=== PATIENT | female | born 1970 | race Caucasian/White ===

== ENCOUNTER → 2018-06-11 | Outpatient (CLI) | payer OTHER ==
[~2018-06-11] MED LIST: CLB100 PO; PRLSR20 PO
--- NOTE | 2018-06-11 11:36 | DIAGNOSTIC IMAGING REPORT ---
CHEST 2 VIEWS ROUTINE HISTORY: Preop. COMPARISON: None. FINDINGS: There are low lung volumes with mild elevation the right hemidiaphragm. Cardiac silhouette is top normal in size. No focal lung consolidations to suggest pneumonia. No evidence for pulmonary edema. IMPRESSION: Low lung volumes with mild elevation of the right hemidiaphragm. Otherwise, no acute process within the chest. Electronically signed by: Ben Villareal M.D. 06/11/2018 11:34 AM Dictated Date/Time: 06/11/2018 11:33 AM
[2018-06-11 11:46] LABS: BASO % 0.4 %; BASO ABS # 0.05 K/uL (0-0.2); EOS % 3.1 %; EOS ABS # 0.36 K/uL (0-0.5); HEMATOCRIT 40.5 % (37-47); HEMOGLOBIN 13.3 g/dL (12.0-16.0); IG# 0.03 K/uL (0.00-0.02); LYMPH % 22.5 %; LYMPH ABS # 2.62 K/uL (1.2-3.4); MEAN CORPUSCULAR HEMOGLOBIN 29.9 pg (25-34); MEAN CORPUSCULAR HGB CONC 32.8 g/dl (32-36); MEAN PLATELET VOLUME 10.4 fL (7.4-10.4); MONO % 5.7 %; MONO ABS # 0.67 K/uL (0.11-0.59); NEUT ABS # 7.93 K/uL (1.4-6.5); PLATELET COUNT 260 K/uL (130-400); RED CELL DISTRIBUTION WIDTH CV 13.1 % (11.5-14.5); RED CELL DISTRIBUTION WIDTH SD 43.6 fL (36.4-46.3); WHITE BLOOD COUNT 11.66 K/uL (4.8-10.8)
[2018-06-11 11:51] LABS: ALBUMIN 3.5 gm/dl (3.4-5.0); BLOOD UREA NITROGEN 17 mg/dl (7-18); CARBON DIOXIDE 28 mmol/L (21-32); CREATININE 0.71 mg/dl (0.60-1.20); GLUCOSE 91 mg/dl (70-99); POTASSIUM 4.6 mmol/L (3.5-5.1); SODIUM 141 mmol/L (136-145)
[2018-06-11 12:06] LABS: INR 0.9 (0.9-1.1); PTT PATIENT 25.6 SECONDS (21.0-31.0)
[2018-06-11 12:35] LABS: HEMOGLOBIN A1C 5.9 % (4.5-5.6)
== END | disposition home or self-care (01) ==
LOC: C.CPL 10:24
PROVIDERS: ATTEND Orthopaedic Surgery
DX: Z01.818 Encounter for other preprocedural examination (principal)

== ENCOUNTER 2018-06-24 06:13 | Inpatient (IN) | payer OTHER ==
[2018-06-01 08:05] VITALS: BMI 45.0
--- NOTE | 2018-06-10 16:27 | PAT Medication Instructions ---
Service Date Jun 10, 2018. Current Home Medication List Celecoxib (Celebrex), Unknown Dose PO QAM Omeprazole (Prilosec), 20 MG PO QAM Medication Instructions For Your Scheduled Surgery - Check with surgeon for instructions: Celecoxib (Celebrex), Unknown Dose PO QAM - Take the following medications the morning of surgery with a sip of water: Omeprazole (Prilosec), 20 MG PO QAM If you have any questions please call us at [phone] or [phone] or [phone]
[2018-06-11 11:00] VITALS: BMI 47.0
--- NOTE | 2018-06-11 14:41 | HISTORY & PHYSICAL EXAMINATION ---
DATE OF ADMISSION: 06/24/2018 CHIEF COMPLAINT: Left knee pain. HISTORY OF PRESENT ILLNESS: Roberto is a 48-year-old female with a 4-year history of left knee pain. The patient rates her pain at 12/10. She has pain with her daily activities. She has limited standing and walking tolerance. Pain is worse with weightbearing. The patient has had injections and NSAIDS without relief. She is now scheduled for left knee replacement. PAST MEDICAL HISTORY: Benign. She denies heart disease, diabetes or DVT. PAST SURGICAL HISTORY: Right TKA, and cholecystectomy. SOCIAL HISTORY: The patient drinks alcohol socially. She denies tobacco use. She does vape occasionally. She quit smoking in 2016. She lives in a 2-story home. She is and works as an RN. FAMILY HISTORY: Negative for DVT. MEDICATIONS: Celebrex 200 mg, Prilosec. ALLERGIES: None. REVIEW OF SYSTEMS: See HPI. Ten other systems reviewed, all negative. PHYSICAL EXAMINATION: VITAL SIGNS: Height 5 feet 7 inches, weight 300 pounds, BMI 47. GENERAL: This is a well-developed, well-nourished female who is alert and oriented x3. Mood and affect are appropriate. HEENT: Normocephalic, atraumatic. Mucous membranes are moist and intact. NECK: Supple without lymphadenopathy. HEART: Regular rate and rhythm without murmurs, rubs or gallops. LUNGS: Clear to auscultation without wheezes or rhonchi. ABDOMEN: Soft and nontender. Bowel sounds are equal and active. EXTREMITIES: No ecchymosis, redness or warmth. She has neutral alignment. Range of motion is from 0-115 degrees with +1 laxity. She has positive effusion and mild distal edema. X-RAY EXAMINATION: AP and lateral views show joint space narrowing and osteophyte formation. IMPRESSION: 1. Degenerative joint disease, left knee. 2. Morbid obesity. PLAN: The patient will be admitted for a left total knee arthroplasty. We will plan on aspirin for DVT prophylaxis. The patient would like to do outpatient physical therapy.
[~2018-06-24] VITALS: Ht 170.2 cm; Wt 137.3 kg
[2018-06-24] VITALS (8 sets, daily range): BP systolic 99–146; BP diastolic 67–82; PULSE 77–96; TEMP 36.4–36.9; O2SAT 94–97; Ht 170.2 cm; Wt 137.3 kg
[2018-06-24] MEDS: TRANEXAMIC ACID INJ 1,000 MG x 2 Bags IV SCH ×4 (06:00→06:30)
[~2018-06-24 06:13] MED LIST changes: +ACETAMINOPHEN 500 MG TAB PO SCH; +CEFAZOLIN 3000MG IV PUSH 22.5 ML IV SCH; +CeleBREX 200 MG CAP PO SCH; +DEXAMETHASONE 4 MG TAB PO SCH; +FAMOTIDINE 20 MG TAB PO SCH; +GABAPENTIN 300 MG CAP PO SCH; +LACTATED RINGER'S 1000ML 1,000 ML IV SCH; +LACTATED RINGER'S 1000ML 500 ML IV SCH; +METOCLOPRAMIDE HCL 10 MG TAB PO SCH; +ROPIVACAINE 5MG/ML 30 ML 150 MG, BUPIVACAINE 0.5% MPF INJ 30 ML, EpINEphrine HCL INJ 0.... INFIL SCH
--- NOTE | 2018-06-24 07:00 | History & Physical Bridge Note ---
H&P Re-Evaluation Bridge Note: I have examined the patient, reviewed the History & Physical and in the interval since the performance of the History & Physical I have noted the following changes of clinical significance: No changes noted
[2018-06-24] MEDS ORDERED: BUPIVACAINE 0.25% 30 ML VIAL ONE (07:11)
[2018-06-24] MEDS ORDERED: BUPIVACAINE 0.5 % 5 MG/1 ML PF 10ML VIAL ONE (07:11)
[2018-06-24] MEDS ORDERED: MIDAZOLAM HCL 1 MG/ML 2ML VIAL ONE ×2 (08:11)
[2018-06-24] MEDS ORDERED: FENTANYL CITRATE INJ 50 MCG/1 ML 2 ML VIAL ONE (08:12)
[2018-06-24] MEDS ORDERED: ORTHO JOINT ANESTHETIC ONE (08:44)
[2018-06-24] MEDS ORDERED: POVIDONE-IODINE OP SOLN 30 ML BTL ONE (08:45)
[2018-06-24] MEDS ORDERED: BACITRACIN 50000 UNIT VIAL ONE (08:45)
[2018-06-24] MEDS ORDERED: ATROPINE SULFATE 0.1 MG/ML 5ML SYR IV PRN (10:45)
[2018-06-24] MEDS ORDERED: HYDROmorphone INJ 2 MG/ML SYR/VIAL IV PRN (10:45)
[2018-06-24] MEDS ORDERED: KETOROLAC TROMETHAMINE 30 MG/ML VIAL IV. PRN ×2 (10:45→12:00)
[2018-06-24] MEDS ORDERED: PHENYLEPHRINE 100MCG/ML 5ML SYR IV PRN (10:45)
[2018-06-24] MEDS ORDERED: ONDANSETRON INJ 2 MG/ML 2 ML VIAL IV PRN ×2 (10:45→12:00)
[2018-06-24] MEDS ORDERED: EpHEDrine SULFATE INJ 50 MG/ML AMP IV PRN (10:45)
--- NOTE | 2018-06-24 11:05 | [facility] Post Operative Brief Note ---
Immediate Operative Summary Operative Date Jun 24, 2018. Pre-Operative Diagnosis Left Knee Degenerative Joint Disease Post-Operative Diagnosis Same as preop Procedure(s) Performed Left Total Knee Arthroplasty utilizing Mariajose persona size 9 left femur size E tibia 10 mm medial congruent bearing with a 31 x 8 mm asymmetric patella Surgeon Dr. Hicks Dump Motorman Surgeon(s) Rocco Galloway PA-C Estimated Blood Loss 10 ml Findings Consistent with Post-Op Diagnosis Specimens A. Left Knee Bone and Tissue Anesthesia Type MAC Spinal Regional Complication(s) none Disposition Disposition: Recovery Room / PACU Overlapping Procedure I was present for: the critical portions of procedure. I was immediately available: during the entire case Back up surgeon: was not required during procedure
[2018-06-24] MEDS ORDERED: PROPOFOL IV EMULSION 10 MG/ML 20 ML VIAL ONE (11:08)
[2018-06-24] MEDS ORDERED: LIDOCAINE HCL 2% 2 ML VIAL (20MG/ML) ONE (11:08)
--- NOTE | 2018-06-24 11:09 | [facility] Operative Report ---
Operative Report Operative Date Jun 24, 2018. Pre-Operative Diagnosis Left Knee Degenerative Joint Disease Post-Operative Diagnosis Same as preop Procedure(s) Performed Left Total Knee Arthroplasty utilizing Mariajose persona size 9 left femur size E tibia 10 mm medial congruent bearing with a 31 x 8 mm asymmetric patella Surgeon Dr. Hicks Electric Motor Assembler And Tester Surgeon(s) Rocco Galloway PA-C Estimated Blood Loss 10 ml Findings Patient presents with severe end-stage chronic more mild degenerative joint disease left knee she has previously undergone years prior elsewhere a right total knee arthroplasty presents today for left total neuroplasty after failing attempts at conservative management findings time surgery included a subchondral cystic changes marginal osteophytes sclerosis eburnated bone tricompartmentally pseudo-ligamentous laxity of the medial compartment Specimens A. Left Knee Bone and Tissue Anesthesia Type MAC Spinal Regional Complication(s) none Disposition Recovery Room / PACU Indications Patient presents is very pleasant 48-year-old white female after failing attempts at conservative management for her left knee she has severe intractable neurogenic joint disease with the above findings noted time surgery she also noted clinically of pseudo-ligamentous laxity medial compartment she had painful crepitation patellofemoral joint medial compartment with medial and lateral joint line pain and tenderness and a moderate to large effusion Description of Procedure After proper prepping draping the left lower extremity and anterior extensor mechanism incision was made medial parapatellar incision made the patella was subluxed lateralward the portion of the anterior fat pad was excised the medial lateral osteophytes were removed the anterior posterior cruciate ligament complex was removed as well as the medial lateral menisci subsequently the custom perform a guide is placed on the distal femoral to distal femur cut was made the 4-in-1 block was placed chamfer cuts in appropriate anterior and posterior cuts were made in the appropriate rotational alignment utilizing the custom made block of these also were verified via drop rods subsequently the proximal tibia was exposed proximal tibial osteotomy was cut persona custom- made jig alignment was noted to be excellent socially wound was irrigated with copious amounts of sterile saline solution trials were placed a size 9 narrow femur with a size E to be gave excellent fit and fill with the 10 mm congruent bearing gave excellent stability in both full extension flexion and mid flexion excellent stability was obtained and maintained throughout all ranges asymmetric patella 31 mm gave excellent patellar tracking with no lateral release necessary Sterilization Via Severe Pulsatile Lavage Meticulous Hemostasis Was Obtained and Maintained at All Times the Final Components Were Brought into the Field Cement Was Mixed and Subsequently the Implants Were Cemented in the Following Order Tibia Femoropatellar All Excess Bone Cement Was Removed the Tracking Was Noted to Be Excellent Stability Was Noted to Be Excellent in Both Flexion and Extension and Mid Flexion the Medial Parapatellar Incision Was Closed with #1 Vicryl Subcu Was Closed with 2-0 Vicryl Skin Was Closed with a Running V Lock a Sterile Compression Dressing Was Placed Patient Was Taken to the Recovery Room in Stable Condition Please Note Rocco HALEY Was Necessary Prepping Draping Retraction Wound Closure of the Fascia Subcu and Skin Was Necessary for the Case I attest to the content of the Intraoperative Record and any orders documented therein. Any exceptions are noted below.
[2018-06-24] MEDS ORDERED: BISACODYL 10 MG SUPP PR PRN (12:00)
[2018-06-24] MEDS ORDERED: ALUMINUM/MAGNESIUM/SIMETH (MAALOX MAX) 30 ML UDC PO PRN (12:00)
[2018-06-24] MEDS ORDERED: MoRPHine SULFATE 2 MG/ML CARP IV PRN (12:00)
[2018-06-24] MEDS ORDERED: MAGNESIUM HYDROXIDE SUSP 30 ML UDC PO PRN (12:00)
[2018-06-24] MEDS ORDERED: ZOLPIDEM TARTRATE 5 MG TAB PO PRN (12:00)
[2018-06-24] MEDS ORDERED: SOD PHOSPHATE/SOD BIPHOSPHATE ENEMA 132 ML BTL PR PRN (12:00)
--- NOTE | 2018-06-24 12:09 | DIAGNOSTIC IMAGING REPORT ---
LEFT KNEE 2 VIEWS History: Left total knee arthroplasty. Degenerative arthritis. Postop. FINDINGS: The patient is status post a left total knee arthroplasty. The hardware is intact. No fracture or dislocation. Surgical drains are in place. IMPRESSION: Left total knee arthroplasty. No evidence for hardware complication. Electronically signed by: Ben Villareal M.D. 06/24/2018 12:07 PM Dictated Date/Time: 06/24/2018 12:06 PM
--- NOTE | 2018-06-24 12:25 | Anesthesiology Progress Note ---
Anesthesia Post Op Note Date & Time Jun 24, 2018 at 12:25 Vital Signs Pain Intensity: 0 Vital Signs Past 12 Hours Date Time Temp Pulse Resp B/P (MAP) Pulse Ox O2 Delivery O2 Flow Rate FiO2 06/24/18 12:15 81 16 105/73 96 Nasal Cannula 2 06/24/18 12:05 90 17 114/76 97 Nasal Cannula 2 06/24/18 11:55 96 19 98/58 97 Oxymask 10 06/24/18 11:46 36.6 103 20 98/57 96 Oxymask 10 06/24/18 07:09 36.9 81 20 131/82 96 Room Air Notes Mental Status: alert / awake / arousable, participated in evaluation Pt Amnestic to Procedure: Yes Nausea / Vomiting: adequately controlled Pain: adequately controlled Airway Patency, RR, SpO2: stable & adequate BP & HR: stable & adequate Hydration State: stable & adequate Anesthetic Complications: no major complications apparent
[2018-06-24] MEDS: ACETAMINOPHEN 500 MG TAB PO SCH ×2 (13:54→21:49)
[2018-06-24] MEDS: OXYCODONE HCL IR 5 MG TAB (IMMEDIATE RELEASE) PO PRN (18:43)
[2018-06-24] MEDS: D5W AND 1/2NSS + 20MEQ KCL 1,000 ML IV SCH (19:35)
[2018-06-24] MEDS ORDERED: SENNA 8.6 MG TAB PO SCH (21:00)
[2018-06-24] MEDS: ASPIRIN 81 MG ECTAB PO SCH (21:08)
[2018-06-24] MEDS: DOCUSATE SODIUM 100 MG CAP PO SCH (21:08)
[2018-06-24] MEDS: CEFAZOLIN IV 2,000 MG in SYRINGE 0 ML IV SCH (21:48)
[2018-06-25] MEDS: OXYCODONE HCL IR 5 MG TAB (IMMEDIATE RELEASE) PO PRN ×3 (01:00→14:26)
[2018-06-25 03:31] VITALS: BP 123/74; PULSE 90; TEMP 36.7; O2SAT 96
[2018-06-25] MEDS: D5W AND 1/2NSS + 20MEQ KCL 1,000 ML IV SCH ×2 (05:19→09:19)
[2018-06-25] MEDS: CEFAZOLIN IV 2,000 MG in SYRINGE 0 ML IV SCH (05:23)
[2018-06-25] MEDS: ACETAMINOPHEN 500 MG TAB PO SCH ×2 (05:23→13:37)
[2018-06-25 06:27] LABS: HEMATOCRIT 35.1 % (37-47); HEMOGLOBIN 11.6 g/dL (12.0-16.0); MEAN CELL VOLUME 90.2 fL (80-100); MEAN CORPUSCULAR HEMOGLOBIN 29.8 pg (25-34); MEAN PLATELET VOLUME 10.5 fL (7.4-10.4); PLATELET COUNT 271 K/uL (130-400); RED CELL DISTRIBUTION WIDTH CV 13.4 % (11.5-14.5); RED CELL DISTRIBUTION WIDTH SD 43.7 fL (36.4-46.3)
[2018-06-25 06:57] LABS: CREATININE 0.88 mg/dl (0.60-1.20)
[2018-06-25 06:58] LABS: CALCIUM 8.4 mg/dl (8.5-10.1); POTASSIUM 4.3 mmol/L (3.5-5.1)
[2018-06-25 07:30] VITALS: BP 116/70; PULSE 85; TEMP 36.6; O2SAT 94
--- NOTE | 2018-06-25 08:22 | Orthopedic Progress Note ---
Orthopedic Progress Note Date of Service Jun 25, 2018. Subjective Post OP Day: 1 Reports: feeling well, Denies: complaints, chest pain, SOB, nausea / vomiting, light headedness, calf pain Objective calves soft nontender, N/V intact, dressing C/D/I, A&O x3, toes mobile Date Time Temp Pulse Resp B/P (MAP) Pulse Ox O2 Delivery O2 Flow Rate FiO2 06/25/18 07:30 36.6 85 18 116/70 (85) 94 Room Air 06/25/18 03:31 36.7 90 18 123/74 (90) 96 Room Air 06/25/18 03:30 Room Air 06/25/18 00:40 Room Air 06/24/18 23:05 36.8 96 18 115/70 (85) 95 Room Air 06/24/18 19:40 36.6 94 18 127/82 (97) 94 Room Air 06/24/18 15:37 36.7 88 18 119/76 (90) 95 Room Air 06/24/18 15:35 Room Air 06/24/18 14:40 85 18 146/74 (98) 97 2.0 06/24/18 13:38 79 16 127/81 (96) 96 2.0 06/24/18 13:04 36.4 79 17 110/75 (87) 96 Nasal Cannula 2.0 06/24/18 13:00 Nasal Cannula 2.0 06/24/18 12:40 96 Nasal Cannula 2.0 06/24/18 12:40 96 Nasal Cannula 2.0 06/24/18 12:40 36.4 77 15 99/67 (78) 96 Nasal Cannula 2.0 06/24/18 12:25 36.2 84 16 115/69 96 Nasal Cannula 2 06/24/18 12:15 81 16 105/73 96 Nasal Cannula 2 06/24/18 12:05 90 17 114/76 97 Nasal Cannula 2 06/24/18 11:55 96 19 98/58 97 Oxymask 10 06/24/18 11:46 36.6 103 20 98/57 96 Oxymask 10 Laboratory Results 24 Hours: Test 06/25/18 06:00 Hematocrit 35.1 % Hemoglobin 11.6 g/dL Prothromb Time International Ratio 1.0 Prothrombin Time 10.4 SECONDS Assessment & Plan Assessment: POD 1 s/p Left TKA Leukocytosis - asymptomatic - likely due to surgical stress/preop steroids Plan: PT/OT Planning for OPPT upon dc redraw CBC in AM Inhouse Planning Pain Management: Celebrex, Ultram, Morphine, PO Tylenol, Oxy IR DVT Prophylaxis: TEDs, SCDs, ASA Discharge Planning Discharge Planning: home with oppt
--- NOTE | 2018-06-25 08:46 | Anesthesiology Progress Note ---
Anesthesia Post Op Note Date & Time Jun 25, 2018 at 08:45 Vital Signs Pain Intensity: 6.0 Vital Signs Past 12 Hours Date Time Temp Pulse Resp B/P (MAP) Pulse Ox O2 Delivery O2 Flow Rate FiO2 06/25/18 07:40 Room Air 06/25/18 07:30 36.6 85 18 116/70 (85) 94 Room Air 06/25/18 03:31 36.7 90 18 123/74 (90) 96 Room Air 06/25/18 03:30 Room Air 06/25/18 00:40 Room Air 06/24/18 23:05 36.8 96 18 115/70 (85) 95 Room Air Notes Mental Status: alert / awake / arousable, participated in evaluation Pt Amnestic to Procedure: Yes Nausea / Vomiting: adequately controlled Pain: adequately controlled Airway Patency, RR, SpO2: stable & adequate BP & HR: stable & adequate Hydration State: stable & adequate Neuraxial Anesthesia: sensory block resolved Anesthetic Complications: no major complications apparent
[2018-06-25] MEDS: ASPIRIN 81 MG ECTAB PO SCH (08:53)
[2018-06-25] MEDS: DOCUSATE SODIUM 100 MG CAP PO SCH (08:53)
[2018-06-25] MEDS ORDERED: MULTIVITAMIN TAB PO SCH (09:00)
[2018-06-25] MEDS ORDERED: PANTOprazole SOD 40 MG TAB PO SCH (09:00)
--- NOTE | 2018-06-25 09:11 | Discharge Instructions ---
Discharge Instructions Date of Service Jun 25, 2018. Admission Reason for Admission: Left Knee Osteoarthritis Discharge Discharge Diagnosis / Problem: left total knee replacement Discharge Goals Goal(s): Decrease discomfort, Improve function, Increase independence Activity Recommendations Activity Limitations: as noted below Weightbearing Status: Left weightbearing (as tolerated) . Instructions / Follow-Up Instructions / Follow-Up ACTIVITY RECOMMENDATIONS: SELF CARE INSTRUCTIONS AFTER TOTAL KNEE REPLACEMENT A. You may need to continue a physical therapy program after discharge from the hospital. There are several options available to you. Your doctor will assist you in selecting the best one for you. 1. An out-patient facility 2 to 3 times a week for therapy or home therapy. 2. Continue working on all exercises taught to you in the hospital. Your goals should be to increase bending of your knee to 90 degrees and beyond and to fully straighten your knee. B. You may progress at your own pace from walking with a walker or crutches to a cane; then to no assistive devices. C. Make walking a part of your daily routine. Be up as much as comfortable with rest periods throughout the day. Rest with leg elevation is very important. Use the ice wrap frequently for the first 3-4 weeks. D. There are no restrictions on activities. You may ride in a car, shop, participate in crop farmers and all social activities. E. Wear the long elastic stockings (CHRISTIANO hose) 20 hours a day for 2 weeks after surgery. They can be removed several times a day for laundering and for a bath. F. You may shower, no tub baths until cleared by your doctor. SPECIAL CARE INSTRUCTIONS: VERY IMPORTANT TO READ AND REVIEW A. There are a few signs you need to watch for after you are home. Call [facility] if you notice any of the followin. Increased severe knee pain. Some pain is expected especially when you exercise. 2. Increased swelling in your leg or knee; pain or swelling of the calf muscle in either lower leg. 3. Any fluid drainage from the incision. 4. Shortness of breath or chest pain. B. Please call [facility] at if you have any concerns or questions about your operation or recovery. The doctor or his nurse will return your call promptly. C. You must take antibiotics before dental work, bladder, bowel or other surgery. Your doctor will provide you with a permanent care to carry describing this precaution. IMPORTANT: * REMEMBER TO TAKE ASPIRIN, 81 MG, TWICE DAILY FOR 4 WEEKS UNLESS OTHERWISE DIRECTED. THIS IS YOUR BLOOD THINNER. * HIGH RISK PATIENTS MAY BE PRESCRIBED A STRONGER BLOOD THINNER. THIS WILL BE PROVIDED AT DISCHARGE. * CALL IF INCREASED PAIN, REDNESS, DRAINAGE OR FEVER GREATER THAT 101. * WEAR CHRISTIANO HOSE 20 HOURS PER DAY FOR 2 WEEKS. * DERMABOND Prineo- This is a mesh tape dressing that is covered with glue. It should remain in place until the incision is properly healed, usually 10-14 days. This dressing is designed to naturally slough off. You may trim the excess mesh tape as it peels off. Incision may be briefly wet in a shower. Dry immediately by blotting with a clean, dry towel. Do not bath or swim until instructed by your doctor. Do not scratch, rub, or pick at the dressing. Do not apply any topical ointments or lotions until dressing is completely removed and/or instructed by your doctor. There may be a small piece of suture material at one end of your incision. Do not pull or trim this. If it is bothersome or catching on clothing, you may cover it with a band-aid. FOLLOW UP VISIT: If appointment is not already scheduled: Please call [facility] [place] to make a follow-up appointment for 2 weeks after your surgery at . Current Hospital Diet Patient's current hospital diet: Regular Diet Discharge Diet Recommended Diet: Regular Diet Procedures Procedures Performed: Left Total Knee Arthroplasty utilizing Mariajose persona size 9 left femur size E tibia 10 mm medial congruent bearing with a 31 x 8 mm asymmetric patella Pending Studies Studies pending at discharge: no Laboratory Results Hemoglobin A1c Test 06/11/18 10:49 Range/Units Estimated Average Glucose 123 mg/dl Hemoglobin A1c 5.9 H 4.5-5.6 % Medical Emergencies . Who to Call and When: Medical Emergencies: If at any time you feel your situation is an emergency, please call 911 immediately. . Non-Emergent Contact Non-Emergency issues call your: Primary Care Provider, Surgeon . "Provider Documentation" section prepared by Rocco Galloway. . [place] Drug Monitoring Program Search Results: patient reviewed within database, no issues identified
[2018-06-25 10:49] VITALS: BP 146/88; PULSE 92; TEMP 36.7; O2SAT 96
[2018-06-25] MEDS ORDERED: SENN-61 PO (13:52)
[2018-06-25] MEDS ORDERED: ACET-24 PO (13:52)
[2018-06-25] MEDS ORDERED: RXC5 PO (13:52)
[2018-06-25] MEDS ORDERED: CLB200 PO (13:52)
[2018-06-25] MEDS ORDERED: ASPI-461 PO (13:52)
[2018-06-25] MEDS ORDERED: NURSING VERBAL MED ORDER ONE (14:00)
[2018-06-25] MEDS ORDERED: CALCIUM CARBONATE 500 MG CHEWABLE PO PRN (14:00)
[2018-06-25 14:20] VITALS: BP 146/88; PULSE 92; TEMP 36.7; O2SAT 96
[2018-06-25] MEDS ORDERED: CeleBREX 200 MG CAP PO SCH (21:00)
--- NOTE | 2018-06-26 07:06 | Discharge Summary ---
Orthopedic Discharge Summary Admission Date/Reason Jun 24, 2018 at 07:55 Left Knee Osteoarthritis. Discharge Date/Disposition Jun 25, 2018 Home Diagnosis Principal Diagnosis: left knee osteoarthritis Procedure(s) Performed Left Total Knee Arthroplasty utilizing Mariajose persona size 9 left femur size E tibia 10 mm medial congruent bearing with a 31 x 8 mm asymmetric patella Consultations NONE Medication Reconciliation New Medications: Acetaminophen (Sb Non-Aspirin Extra Stre) 500 Mg Tab 1000 MG PO Q8H for 21 Days, #126 TAB Aspirin (Aspirin) 81 Mg Tab 81 MG PO BID for 30 Days, #60 TAB Celecoxib (Celebrex) 200 Mg Cap 200 MG PO BID, #60 CAP Oxycodone HCl (Oxycodone HCl) 5 Mg Tab 5 MG PO Q4H PRN for Pain, #30 TAB Senna (Senokot) 8.6 Mg Tab 17.2 MG PO HS, #30 TAB Continued Medications: Omeprazole (Prilosec) 20 Mg Capcr 20 MG PO QAM, CAP Discontinued Medications: Celecoxib (Celebrex) Unknown Strength Cap Unknown Dose PO QAM for 30 Days, CAP Admission Physical Exam As per Admitting History & Physical. Hospital Course Patient was a same day admission after undergoing a successful left TKA. She tolerated the procedure well. Post-operatively, her activity was progressed and well tolerated. Please refer to daily progress notes and PT notes for complete details. After exam on 06/25/18, patient felt to be stable for discharge home with outpatient PT. She will be discharged home and f/u in the office on 06/26/18 for dressing change and will pull hemovac drain at that time. Patient will f/u in the office in 2 weeks for further evaluation including x-rays and incision check, sooner if having any issues or concerns. Below are pertinent labs/ studies during their hospital stay: Test 06/25/18 06:00 Range/Units White Blood Count 26.70 4.8-10.8 K/uL Red Blood Count 3.89 4.2-5.4 M/uL Hemoglobin 11.6 12.0-16.0 g/dL Hematocrit 35.1 37-47 % Mean Corpuscular Volume 90.2 80-100 fL Mean Corpuscular Hemoglobin 29.8 25-34 pg Mean Corpuscular Hemoglobin Concent 33.0 32-36 g/dl RDW Standard Deviation 43.7 36.4-46.3 fL RDW Coefficient of Variation 13.4 11.5-14.5 % Platelet Count 271 130-400 K/uL Mean Platelet Volume 10.5 7.4-10.4 fL Prothrombin Time 10.4 9.0-12.0 SECONDS Prothromb Time International Ratio 1.0 0.9-1.1 Sodium Level 140 136-145 mmol/L Potassium Level 4.3 3.5-5.1 mmol/L Chloride Level 110 98-107 mmol/L Carbon Dioxide Level 24 21-32 mmol/L Anion Gap 7.0 3-11 mmol/L Blood Urea Nitrogen 17 7-18 mg/dl Creatinine 0.88 0.60-1.20 mg/dl Est Creatinine Clear Calc Drug Dose 110.9 ml/min Estimated GFR () 88.8 Estimated GFR (Non- 76.6 BUN/Creatinine Ratio 19.4 10-20 Random Glucose 147 70-99 mg/dl Calcium Level 8.4 8.5-10.1 mg/dl Last Vital Signs Documentation Date Time Temp Pulse Resp B/P (MAP) Pulse Ox O2 Delivery O2 Flow Rate FiO2 06/25/18 14:20 36.7 92 18 96 Room Air 06/25/18 10:49 146/88 (107) 06/24/18 14:40 2.0 Discharge Instructions ACTIVITY RECOMMENDATIONS: SELF CARE INSTRUCTIONS AFTER TOTAL KNEE REPLACEMENT A. You may need to continue a physical therapy program after discharge from the hospital. There are several options available to you. Your doctor will assist you in selecting the best one for you. 1. An out-patient facility 2 to 3 times a week for therapy or home therapy. 2. Continue working on all exercises taught to you in the hospital. Your goals should be to increase bending of your knee to 90 degrees and beyond and to fully straighten your knee. B. You may progress at your own pace from walking with a walker or crutches to a cane; then to no assistive devices. C. Make walking a part of your daily routine. Be up as much as comfortable with rest periods throughout the day. Rest with leg elevation is very important. Use the ice wrap frequently for the first 3-4 weeks. D. There are no restrictions on activities. You may ride in a car, shop, participate in surgical territory manager and all social activities. E. Wear the long elastic stockings (CHRISTIANO hose) 20 hours a day for 2 weeks after surgery. They can be removed several times a day for laundering and for a bath. F. You may shower, no tub baths until cleared by your doctor. SPECIAL CARE INSTRUCTIONS: VERY IMPORTANT TO READ AND REVIEW A. There are a few signs you need to watch for after you are home. Call [facility] if you notice any of the followin. Increased severe knee pain. Some pain is expected especially when you exercise. 2. Increased swelling in your leg or knee; pain or swelling of the calf muscle in either lower leg. 3. Any fluid drainage from the incision. 4. Shortness of breath or chest pain. B. Please call [facility] at if you have any concerns or questions about your operation or recovery. The doctor or his nurse will return your call promptly. C. You must take antibiotics before dental work, bladder, bowel or other surgery. Your doctor will provide you with a permanent care to carry describing this precaution. IMPORTANT: * REMEMBER TO TAKE ASPIRIN, 81 MG, TWICE DAILY FOR 4 WEEKS UNLESS OTHERWISE DIRECTED. THIS IS YOUR BLOOD THINNER. * HIGH RISK PATIENTS MAY BE PRESCRIBED A STRONGER BLOOD THINNER. THIS WILL BE PROVIDED AT DISCHARGE. * CALL IF INCREASED PAIN, REDNESS, DRAINAGE OR FEVER GREATER THAT 101. * WEAR CHRISTIANO HOSE 20 HOURS PER DAY FOR 2 WEEKS. * DERMABOND Prineo- This is a mesh tape dressing that is covered with glue. It should remain in place until the incision is properly healed, usually 10-14 days. This dressing is designed to naturally slough off. You may trim the excess mesh tape as it peels off. Incision may be briefly wet in a shower. Dry immediately by blotting with a clean, dry towel. Do not bath or swim until instructed by your doctor. Do not scratch, rub, or pick at the dressing. Do not apply any topical ointments or lotions until dressing is completely removed and/or instructed by your doctor. There may be a small piece of suture material at one end of your incision. Do not pull or trim this. If it is bothersome or catching on clothing, you may cover it with a band-aid. FOLLOW UP VISIT: If appointment is not already scheduled: Please call [facility] to make a follow-up appointment for 2 weeks after your surgery at .
== END 2018-06-25 15:10 | disposition home or self-care (01) | DRG 470 ==
LOC: C.ACU 06:13 → C.3E 07:55 → ENRESERV 12:16
PROVIDERS: ADMIT Orthopaedic Surgery; ATTEND Orthopaedic Surgery
PROC: 0SRD0J9 Replacement of Left Knee Joint with Synthetic Substitute, Cemented, Open Approach (ICD-10-PCS; principal; 2018-06-24 08:30)
DX: M17.12 Unilateral primary osteoarthritis, left knee (principal); Z68.42 Body mass index [BMI] 45.0-49.9, adult; D72.829 Elevated white blood cell count, unspecified; K21.9 Gastro-esophageal reflux disease without esophagitis; E66.01 Morbid (severe) obesity due to excess calories; Z96.651 Presence of right artificial knee joint; Z87.891 Personal history of nicotine dependence; Z79.899 Other long term (current) drug therapy